=== PATIENT | female | born 1970 | race Caucasian/White ===

== ENCOUNTER 2020-02-11 14:16 | Emergency (ER) | payer OTHER, SELFPAY ==
[2020-02-11 14:25] VITALS: BP 120/83; PULSE 100; RESP 20; TEMP 36.9; O2SAT 98
--- NOTE | 2020-02-11 15:05 | ED.GENADULT ---
HPI - General Adult General Chief complaint: Skin/Abscess/Foreign Body Stated complaint: cat scratch on left hand Time Seen by Provider: 02/11/20 15:05 Source: patient and RN notes reviewed Mode of arrival: ambulatory Limitations: no limitations History of Present Illness HPI narrative: 49-year-old female presents with complaints of cat scratch to LT hand with redness, swelling, and pain for the past 7 days. Symptoms increased for the past 48 hours with redness, swelling, and pain. Cleaned area with soap and water and Neosporin ointment without relief. Denies fever or chills. Denies tingling or numbness. Denies immobility. No exacerbating factors. No relieving factors. Denies altered sensation and suspected foreign body. RIGHT HAND is dominant hand. Remains active. Tetanus vaccine NOT up-to-date. 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 The patient reports she have not been diagnosed with COVID-19. The patient reports she is not waiting for the results of a COVID-19 lab test. The patient reports she do not have fever, chills, weakness, or fatigue. The patient reports she do not have a new or worsening cough or shortness of breath. Denies chest pain. The patient reports she do not have any rhinorrhea, congestion, sore throat, loss of taste, nausea, vomiting, abdominal pain, and diarrhea. Tolerating po intake well. Denies recent traveling. Denies concerns for COVID-19 or exposures been home with limited outdoor exposure except for essential household needs and return home. At this time, patient is not suspected of having COVID-19. Some parts of this dictation were generated by voice recognition software and may contain typographical and/or grammatical inaccuracies. Related Data Allergies Allergy/AdvReac Type Severity Reaction Status Date / Time amoxicillin Allergy Unknown rash; Verified 02/11/20 14:32 vomiting clavulanic acid Allergy Unknown rash; Verified 02/11/20 14:32 vomiting sulfamethoxazole Allergy Unknown rash, Verified 02/11/20 14:32 vomiting trimethoprim Allergy Unknown rash, Verified 02/11/20 14:32 vomiting Review of Systems Review of Systems: Narrative: CONSTITUTIONAL: Denies fever, chills, sweats. EYES: Denies visual changes, redness, discharge. ENT: Denies rhinorrhea, congestion, sore throat, otalgia. CARDIOVASCULAR: Denies chest pain, palpitations, edema. RESPIRATORY: Denies dyspnea, wheezing, cough. GASTROINTESTINAL: Denies abdominal pain, nausea, vomiting, diarrhea. SKIN: Denies rash or itching. Complains of animal bite to cat scratch to LT hand with redness, swelling, discomfort. No drainage MUSCULOSKELETAL: Denies acute back pain, joint pain, or myalgia. NEUROLOGIC: Denies numbness or focal weakness. PSYCHIATRIC: Denies anxiety or depression. All other systems reviewed are negative, except as documented in HPI and below. [facility] Past Medical History Medical History (Updated 02/12/20 @ 00:00 by William Hernandez) delivery delivered X3 Raynaud disease Surgical History Surgical History (Updated 02/11/20 @ 20:50 by NICOLE Lopez) H/O section History of arthroscopic knee surgery Left History of hysterectomy History of toe surgery Right great toe bunionectomy Family History Family History Father Family history of chronic obstructive pulmonary disease Mother Family history of malignant neoplasm of ovary Social History Social History (Updated 02/11/20 @ 20:51 by NICOLE Lopez) Smoking packs per day: 0.5 Smoking cigarettes per day: 10.0 Years smoked: 20 Smoking pack-years: 10.00 Smoking status: Current every day smoker Second hand tobacco smoke exposure: No Alcohol intake: never Substance use: never Living arrangements: with family Occupation/Education: unemployed Gender identity (if verbalized by the patient): Female Co
[2020-02-11] MEDS: TETANUS,DIPHTHERIA,AC PERTUSSIS ADULT (0.5 ML) BOOSTRIX IM (15:20)
== END 2020-02-11 15:40 | disposition home or self-care (01) ==
PROVIDERS: Emergency Provider Nurse Practitioner Family
DX: L03.114 Cellulitis of left upper limb (principal); S60.512A Abrasion of left hand, initial encounter; W55.03XA Scratched by cat, initial encounter; Z23 Encounter for immunization; F17.210 Nicotine dependence, cigarettes, uncomplicated; I73.00 Raynaud's syndrome without gangrene
CPT/HCPCS: 90471; 90715; 99213; G0463

== ENCOUNTER 2020-03-23 12:46 | Emergency (ER) | payer OTHER, SELFPAY ==
[2020-03-23 12:51] VITALS: BP 138/94; PULSE 93; RESP 18; TEMP 37.2; O2SAT 99
--- NOTE | 2020-03-23 13:01 | ED.WOUNDLAC ---
HPI - Wound/Laceration General Chief Complaint: Wound/Laceration Stated Complaint: right hand pointer finger lac Source: patient Mode of arrival: ambulatory Limitations: no limitations History of Present Illness HPI narrative: Patient is a 49-year-old female who presents with a laceration to right index finger. Patient reports she was reaching in a box and it was a broken vase. Approximate 2 cm laceration. Bleeding controlled with dressing. Patient reports distal sensation intact and able to flex and extend finger appropriately. Patient reports tetanus shot up-to-date. She denies other complaints. Related Data Home Medications Medication Instructions Recorded Confirmed No Home Medications 03/23/20 03/23/20 Allergies Allergy/AdvReac Type Severity Reaction Status Date / Time amoxicillin Allergy Unknown rash; Verified 03/23/20 12:52 vomiting clavulanic acid Allergy Unknown rash; Verified 03/23/20 12:52 vomiting sulfamethoxazole Allergy Unknown rash, Verified 03/23/20 12:52 vomiting trimethoprim Allergy Unknown rash, Verified 03/23/20 12:52 vomiting Review of Systems Review of Systems: Narrative: CONSTITUTIONAL: Denies fever, chills, or sweats. EYES: Denies visual changes, redness, or discharge. ENT: Denies rhinorrhea, congestion, sore throat, or otalgia. CARDIOVASCULAR: Denies chest pain, palpitations, or edema. RESPIRATORY: Denies cough or dyspnea. GASTROINTESTINAL: Denies abdominal pain, nausea, vomiting, or diarrhea. GENITOURINARY: Denies dysuria or hematuria. SKIN: Laceration to right index finger MUSCULOSKELETAL: Denies back pain, joint pain, or myalgia. NEUROLOGIC: Denies headache, numbness, dizziness, or weakness. PSYCHIATRIC: Denies anxiety or depression. [facility] Past Medical History Medical History delivery delivered X3 Raynaud disease Surgical History Surgical History H/O section History of arthroscopic knee surgery Left History of hysterectomy History of toe surgery Right great toe bunionectomy Family History Family History Father Family history of chronic obstructive pulmonary disease Mother Family history of malignant neoplasm of ovary Social History Social History Smoking packs per day: 0.5 Smoking cigarettes per day: 10.0 Years smoked: 20 Smoking pack-years: 10.00 Smoking status: Current every day smoker Second hand tobacco smoke exposure: No Alcohol intake: never Substance use: never Gender identity (if verbalized by the patient): Female Exam Narrative: Exam Narrative: GENERAL: Well-appearing, well-nourished, and in no acute distress. HEAD: Normocephalic, atraumatic. ENT: Mucous membranes pink and moist. CHEST: No respiratory distress. EXTREMITIES: Normal range of motion. SKIN: Approximately 2 cm laceration to dorsal index finger. Full flexion and extension, distal sensation intact, good capillary refill NEURO: No focal deficits. Alert and oriented x3. Gait steady. PSYCH: Normal affect. No signs of depression or anxiety. Course Vital Signs Vital signs: Vital Signs Temperature 37.2 C 03/23/20 12:51 Pulse Rate 93 03/23/20 12:51 Respiratory Rate 18 03/23/20 12:51 Blood Pressure 138/94 H 03/23/20 12:51 Pulse Oximetry 99 03/23/20 12:51 Temperature 37.2 C 03/23/20 12:51 Pulse Rate 93 03/23/20 12:51 Respiratory Rate 18 03/23/20 12:51 Blood Pressure 138/94 H 03/23/20 12:51 Pulse Oximetry 99 03/23/20 12:51 Procedures Laceration Laceration 1: Date: 03/23/20 Time: 14:08 Site: other (Finger) Side (If applicable): right Size (cm): 3.5 Description: linear Depth: simple, single layer Local Anesthetic: lidocaine
[2020-03-23 13:15] VITALS: BP 138/94; PULSE 93; RESP 18; TEMP 37.2; O2SAT 99
== END 2020-03-23 14:23 | disposition home or self-care (01) ==
PROVIDERS: Emergency Provider Nurse Practitioner
DX: S61.210A Laceration without foreign body of right index finger without damage to nail, initial encounter (principal); W25.XXXA Contact with sharp glass, initial encounter; F17.210 Nicotine dependence, cigarettes, uncomplicated
CPT/HCPCS: 12002; 99212; G0463

== ENCOUNTER 2021-12-16 03:56 | Emergency (ER) | payer OTHER, SELFPAY ==
--- NOTE | ~2021-12-16 | XR_ITS ---
EXAMINATION: XR chest 1V portable DATE: 12/16/2021 04:16 INDICATION: Shortness of breath. TECHNIQUE: A single frontal view of the chest was obtained. COMPARISON: Chest 2 views 11/20/2015 FINDINGS: The chest demonstrates clear lungs without pneumonia, pleural effusion, or pneumothorax. Th e heart size is normal. IMPRESSION: 1. No acute cardiopulmonary disease. Reviewed, dictated and finalized at location A.
[2021-12-16 03:56] VITALS: BP 145/91; PULSE 109; RESP 18; TEMP 37.4; O2SAT 95
--- NOTE | 2021-12-16 04:03 | ED.SOB ---
HPI - SOB/Dyspnea General Chief Complaint: Shortness of Breath/Dyspnea Stated Complaint: sob Time Seen by Provider: 12/16/21 04:03 Source: patient Mode of arrival: ambulatory History of Present Illness HPI Narrative: 1-year-old female smoker with a history of COPD/ asthma, Raynaud's, COVID on 11/29/2021 was stopped by the police and issued a DUI. At that point the patient claimed that she had shortness of breath for which she was brought to the ER. The patient complains of -- shortness of breath -- cough with mucopurulent sputum no fever or chest pain MD elicited complaint: shortness of breath and cough Pertinent past history: COPD and asthma Onset (ago): day(s) ( started 3 days ago) Context: recent illness Timing: constant Severity: mild Exacerbating factors: nothing Relieving factors: nothing Known history of: COPD and asthma Associated symptoms: denies other symptoms Treatment prior to arrival: none Related Data Home oxygen amount: none Home Medications Medication Instructions Recorded Confirmed albuterol sulfate 2 puff inhalation PRN 12/16/21 12/16/21 Allergies Allergy/AdvReac Type Severity Reaction Status Date / Time amoxicillin Allergy Unknown rash; Verified 12/16/21 04:05 vomiting clavulanic acid Allergy Unknown rash; Verified 12/16/21 04:05 vomiting sulfamethoxazole Allergy Unknown rash, Verified 12/16/21 04:05 vomiting trimethoprim Allergy Unknown rash, Verified 12/16/21 04:05 vomiting Review of Systems Review of Systems: All systems reviewed & are unremarkable except as noted in HPI and below Constitutional: Constitutional: Reports as per HPI and Reports no additional constitutional complaints Eyes: Eyes: Reports as per HPI and Reports no additional eye complaints ENT: Reports system reviewed and no additional complaints, except as documented and Reports as per HPI Cardiovascular: Cardiovascular: Reports as per HPI and Reports no additional cardiovascular complaints Respiratory: Respiratory: Reports as per HPI, Reports no additional respiratory complaints, Reports chest congestion, Reports cough and Reports dyspnea Gastrointestinal: Gastrointestinal: Reports as per HPI and Reports no additional gastrointestinal complaints Genitourinary: Genitourinary: Reports no additional female genitourinary complaints and Reports as per HPI Comments: status post hysterectomy Musculoskeletal: Musculoskeletal: Reports no additional musculoskeletal complaints and Reports as per HPI Comments: status post right foot surgery Integumentary/Breasts: Skin/Breast: Reports system reviewed and no additional complaints, except as docu and Reports as per HPI Neurologic: Reports system reviewed and no additional complaints, except as documented and Reports as per HPI Psychiatric: Psychiatric: Reports no additional psychiatric complaints and Reports as per HPI Endocrine: Endocrine: Reports no additional endocrine complaints and Reports as per HPI Hematologic/Lymphatic: Hematologic/Lymphatic: Reports no additional hematologic/lymphatic complaints and Reports as per HPI Allergic/Immunologic: Allergic/Immunologic: Reports no additional allergic/immunologic complaints and Reports as per HPI PMFSH Past Medical History Medical History delivery delivered X3 Raynaud disease Surgical History Surgical History H/O section History of arthroscopic knee surgery Left History of hysterectomy History of toe surgery Right great toe bunionectomy Family History Family History Father Family history of chronic obstructive pulmonary disease Mother Family history of malignant neoplasm of ovary Social History Social History Smoking packs per day: 0.5 Smoking ci
--- NOTE | 2021-12-16 04:04 | ECG_ITS ---
Measurements Intervals [place] Rate: 101 P: 65 ND: 113 QRS: 68 QRSD: 77 T: 21 QT: 340 QTc: 441 Interpretive Statements SINUS TACHYCARDIA WITH SHORT ND INTERVAL BORDERLINE ECG NO PREVIOUS ECG AVAILABLE FOR COMPARISON Electronically Signed On 12-16-2021 12:14:49 CDT by Gabe Reagan M.D.
[2021-12-16 04:20] LABS: Basophils Absolute Auto 0.02 K/mm3 (0.00-0.10); Basophils Percent Auto 0.3 % (0.0-1.0); Eosinophils Absolute Auto 0.15 K/mm3 (0.02-0.50); Eosinophils Percent Auto 2.4 % (1.0-6.0); Hematocrit 31.2 % (35.0-49.0); Hemoglobin 10.3 g/dL (12.0-15.0); Immature Granulocyte Absolute 0.02 K/mm3 (0.00-0.00); Immature Granulocyte Percent A 0.3 % (0.0-0.0); Lymphocytes Absolute Auto 1.32 K/mm3 (1.10-4.50); Lymphocytes Percent Auto 21.2 % (18.0-42.0); Mean Corpuscular Hemoglobin 28.7 pg (27.0-31.0); Mean Corpuscular Volume 86.9 fL (78.0-102.0); Mean Platelet Volume 9.9 fl (9.2-11.8); Monocytes Absolute Auto 0.46 K/mm3 (0.10-0.90); Monocytes Percent Auto 7.4 % (2.0-11.0); Neutrophils Absolute Auto 4.3 K/mm3 (1.7-7.2); Neutrophils Percent Auto 68.4 % (50.0-70.0); Platelet Count Result 249 K/mm3 (150-420); Red Blood Count 3.59 M/mm3 (4.20-5.40); Red Cell Distribution Width 13.3 % (11.6-14.4); White Blood Count 6.2 K/mm3 (4.8-10.8)
[2021-12-16] MEDS: AZITHROMYCIN 250 MG TABLET 500 MG PO (04:21)
[2021-12-16] MEDS: methylPREDNISolone SOD SUCC 125 MG VIAL 40 MG IM (04:22)
[2021-12-16 04:31] LABS: Influenza Control Valid (Valid)
[2021-12-16 04:33] LABS: Prothrombin Time 10.8 Seconds (9.50-12.10)
[2021-12-16 04:44] LABS: Alanine Aminotransferase 20 U/L (14-59); Albumin Level 3.3 g/dL (3.4-5.0); Alkaline Phosphatase 114 U/L (46-116); Anion Gap 6 mmol/L (8-16); Aspartate Amino Transferase 18 U/L (15-37); Bilirubin,Total 0.2 mg/dL (0.00-1.00); Blood Urea Nitrogen 13 mg/dL (7-18); Calcium 8.6 mg/dL (8.5-10.1); Carbon Dioxide 30 mmol/L (21-32); Chloride 103 mmol/L (98-108); Estimated CRCL calculation 48 ml/min; Estimated Glomerular Filt Rate 58; Ethanol < 3 mg/dL (0-6); Glucose 127 mg/dL (70-99); NT Pro B Type Natriuretic Pept 96 pg/mL (0-125); Osmolality Calculated 290 mOsm/kg (285-295); Sodium 139 mmol/L (136-145); Total Protein 6.8 g/dL (6.4-8.2); Troponin I 8.4 ng/L (0.00-60.4)
[2021-12-16 04:50] LABS: SARS-CoV-2 Ag Negative (Negative)
--- NOTE | 2021-12-16 05:02 | PC.NURSE ---
Pt states she does not want a breathing treatment and would like to leave. ERP notified and ok with pt leaving.
[2021-12-16 05:04] VITALS: BP 131/87; PULSE 100; RESP 16; O2SAT 98
== END 2021-12-16 05:08 | disposition home or self-care (01) ==
PROVIDERS: Emergency Provider Internal Medicine Critical Care Medicine
DX: J44.1 Chronic obstructive pulmonary disease with (acute) exacerbation (principal); Z20.822 Contact with and (suspected) exposure to COVID-19
CPT/HCPCS: 71045; 80053; 80307; 83880; 84484; 85025; 85610; 87426; 87804; 93005; 96372; 99284; A9270; C9803; J2930

== ENCOUNTER 2022-06-30 15:09 | Emergency (ER) | payer OTHER, SELFPAY | END 2022-06-30 15:30 | disposition left against medical advice (07) | LOC: ANHED 15:38 | DX: Z53.21 Procedure and treatment not carried out due to patient leaving prior to being seen by health care provider (principal) | CPT/HCPCS: 99199 ==